=== PATIENT | female | born 1965 | race Hispanic/Latino ===

== ENCOUNTER → 2021-11-23 | Day surgery (SDC) | payer OTHER ==
[~2021-11-23] MED LIST: OMEGA 3 1,0001 EACH PO; VITAMIN D PO
[2021-11-23 14:50] VITALS: BP 115/76
== END | disposition home or self-care (01) ==
LOC: OR 10:29
PROVIDERS: ATTEND Internal Medicine Gastroenterology
DX: Z12.11 Encounter for screening for malignant neoplasm of colon (principal); D12.3 Benign neoplasm of transverse colon; D12.4 Benign neoplasm of descending colon; K64.8 Other hemorrhoids; R00.1 Bradycardia, unspecified; Z80.0 Family history of malignant neoplasm of digestive organs
CPT/HCPCS: 45380; 93005